=== PATIENT | female | born 1985 | race African-American/Black ===

== ENCOUNTER 2020-11-24 02:07 | Emergency (ER) | payer SELFPAY ==
[~2020-11-24] VITALS: Ht 170.2 cm; Wt 91.0 kg
[2020-11-24 02:12] VITALS: BP 144/96
[2020-11-24] MEDS ORDERED: IBUPROFEN 600MG TABLET PO STA (02:33)
[2020-11-24] MEDS ORDERED: ONDANSETRON 4MG ODT PO STA (02:33)
[2020-11-24 03:19] LABS: CHLORIDE 108 mEq/L (98-107)
[2020-11-24 03:22] LABS: BASOPHILS % 0.3 % (0.0-2.0); EOSINOPHILS % 0.9 % (0.0-5.0); HEMOGLOBIN. 13.2 g/dL (12.0-16.0); LYMPHOCYTES % 20.3 % (20.0-50.0); MEAN CORPUSCULAR HEMOGLOBIN 27.8 pg (28.0-32.0); MEAN PLATELET VOLUME 7.3 fl (7.4-10.4); MONOCYTES % 7.4 % (2.0-8.0); NEUTROPHILS % 71.1 % (40.0-76.0); PLATELET 324 x1000/uL (130-400); RED BLOOD CELL COUNT 4.76 mill/uL (4.2-5.4); RED CELL DISTRIBUTION WIDTH 15.1 % (11.6-14.6)
[2020-11-24 03:23] LABS: ETHANOL BLOOD < 10 mg/dL
[2020-11-24 04:25] LABS: CLARITY URINE TURBID (CLEAR); COLOR URINE DARK YELLOW (YELLOW); KETONES URINE 1+ (NEGATIVE); LEUKOCYTE ESTERASE URINE TRACE (NEGATIVE); NITRITE URINE NEGATIVE (NEGATIVE); OCCULT BLOOD URINE 2+ (NEGATIVE); PH URINE 5.5 (4.5-8.0); PROTEIN URINE 4+ (NEGATIVE); SPECIFIC GRAVITY URINE 1.036 (1.005-1.030); UROBILINOGEN URINE 0.2 E.U./dL (0.2-1.0)
[2020-11-24 04:41] LABS: *AMPHETAMINES SCREEN URINE NEGATIVE (NEGATIVE); *BARBITURATES SCREEN URINE NEGATIVE (NEGATIVE); *BENZODIAZEPINES SCREEN URINE NEGATIVE (NEGATIVE); *COCAINE SCREEN URINE NEGATIVE (NEGATIVE); METHADONE URINE SCREEN NEGATIVE (NEGATIVE); OPIATES URINE SCREEN NEGATIVE (NEGATIVE); PHENCYCLIDINE URINE SCREEN NEGATIVE (NEGATIVE)
[2020-11-24 04:54] LABS: CANNABINOID URINE SCREEN PRESUMTIVE POSITIVE (NEGATIVE)
== END 2020-11-24 05:29 | disposition home or self-care (01) ==
LOC: ER 02:07
DX: F15.188 Other stimulant abuse with other stimulant-induced disorder (principal); R11.2 Nausea with vomiting, unspecified; F12.988 Cannabis use, unspecified with other cannabis-induced disorder; Z71.51 Drug abuse counseling and surveillance of drug abuser
CPT/HCPCS: 36415; 80053; 80305; 80320; 81003; 81025; 83690; 85025; 99283; Z7610; G0480